=== PATIENT | female | born 1985 | race Caucasian/White ===

== ENCOUNTER → 2019-02-15 16:37 | Outpatient (CLI) | payer BC, SELFPAY ==
[2016-04-22 21:49] VITALS: BMI 34.0
--- NOTE | 2019-02-15 16:44 | RAD_ITS ---
STUDY: X-RAY - LEFT KNEE REASON FOR EXAM: Female, 33 years old. Pain TECHNIQUE: 3 view(s) of the knee. COMPARISON: None. FINDINGS: Normal visualized distal femur. Normal visualized proximal tibia and fibula. Normal proximal tibiofibular articulation. There is mild degenerative arthrosis of the medial femorotibial compartment. Normal lateral femorotibial compartment. Normal patellofemoral articulation. The soft tissue structures are unremarkable. RAD/Knee 3 Views IMPRESSION: Mild degenerative changes. Electronically Signed: Anat Doyle MD at 8:31 EDT Tel , Service support ,
== END ==
PROVIDERS: Family Provider Family Medicine; PCP Family Medicine; Referring Provider Family Medicine; Visit Provider Family Medicine
DX: M25.562 Pain in left knee (principal)
CPT/HCPCS: 73562

== ENCOUNTER → 2019-05-02 10:07 | Outpatient (CLI) | payer BC, SELFPAY ==
--- NOTE | 2019-05-02 10:45 | MRI_ITS ---
STUDY: MRI LEFT KNEE REASON FOR EXAM: Female, 34 years old. Medial knee pain TECHNIQUE: Standardized fat and water weighted pulse sequences were obtained in all 3 orthogonal planes. COMPARISON: Left knee x-ray 02/15/2019 FINDINGS: There is complex tear the medial meniscus body and posterior horn with horizontal and oblique components. There is a small adjacent para meniscal cyst.. There is scattered regions of less than 50% thickness articular cartilage loss of the medial femorotibial compartment. There is trace marrow edema in the posterior medial femoral condyle without evidence of fracture. Normal medial collateral ligamentous complex (MCL). Normal distal semimembranosus, gracilis and semitendinosus tendons. Normal lateral meniscus. Normal hyaline cartilage of the lateral femorotibial compartment. Normal lateral femoral condyle and tibial plateau. Normal proximal tibiofibular articulation. Normal lateral collateral (fibular) ligament. Normal popliteus tendon. Normal biceps femoris tendon. Normal anterior cruciate ligament (ACL). Normal posterior cruciate ligament (PCL). Normal congruent patellofemoral articulation. Normal hyaline cartilage of the patellofemoral compartment. Normal medial and lateral patellar retinaculum. Normal quadriceps tendon. Normal patellar tendon. Normal Hoffa's fat pad. There is no joint effusion. The soft tissues are unremarkable. The otherwise visualized osseous structures are unremarkable. MRI/Lower Ext Joint Only (Routine) IMPRESSION: Complex tear of the medial meniscus body and posterior horn with horizontal and oblique components. Trace bony contusion of the posterior, medial femoral condyle without fracture. Mild chondromalacia of the medial compartment. Electronically Signed: Johnwhitley Allen, at 13:28 EDT Tel , Service support ,
== END ==
PROVIDERS: Family Provider Family Medicine; PCP Family Medicine; Referring Provider Nurse Practitioner Family; Visit Provider Nurse Practitioner Family
DX: M25.569 Pain in unspecified knee (principal)
CPT/HCPCS: 73721

== ENCOUNTER 2020-01-03 16:30 | Outpatient (RCR) | payer BC, SELFPAY ==
--- NOTE | 2019-11-27 16:58 | HP.PTEVAL_ITS ---
Patient's Visit Information STACY SANON is a 34 year old F referred to Physical Therapy by VINCENT LUTHER with a diagnosis of Left Knee Scope. Date of Evaluation: 11/27/19 Physical Therapist: Falguni Cruz DPT - Visit Plan Frequency: 1x/Week Duration: 6 Weeks Plan: 1x a week for 6 weeks for HEP. HEP Given 11/27: quad set, TKE, SLR, Hamstring and Calf Stretching, Bolster extn stretch - Subjective Findings: Left knee scope 11/07/[address] C[address] at [facility]-Wear and tear for about a year and then finally got it checked out. Patient reports its sore after being on it for a long time but once she sat down it was better. 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 Worst: 03/01 Agg: being up on it to long, can't fully straighten it, bending it Eases: sitting down, resting, ice Best: 12/01. Pain along medial knee- describes pain as dull and achy- No radiating pain. No N/T. Does have sciatic nerve problems when she was but it never fully went away hurts with certain movements. Normally she likes to run- 3 [address] a week road and treadmill and beachbody (21 day fix) work outs. PMHx: right shoulder surgery 2006, 2 (8 and 5 year old) Meds: Ibuprofen as needed. Sleep: disturbed. - Objective Posture: FH, RS- can correct but does not maintain. Gait: antalgic- decreased heel/toe pattern due to decreased ROM, decreased stance on left LE. SLS: 30 sec but reports discomfort- increased muscle activation. HR/TR: able reports discomfort with HR. Squat: weight shift to the right- limited ROM. Stairs: asc/desc 8 recip no HR with poor control and descreased push off on the left LE. Observation: incision healing well no s/s of infection. ROM: 10-120 degrees with pain at end ranges. Strength: Ankle: 5/5, Knee: 4+/5, Hip: 4/5 quad set visible but 50% of non surgical, SLR slight lag without quad set first. Flex: HS: severe, Gastroc: severe, Soleus: severe - Goals Goal 1:: Patient will be I with HEP and progression Goal Time Frame: 4-6 Weeks Goal 2:: Patient will ambualte <300 feet with a normalized pattern Goal Time Frame: 4-6 Weeks Goal 3:: Verónican will demo 0-130 degrees of ROM Goal Time Frame: 4-6 Weeks Goal 4:: Patient will asc/desc 8 stairs recip with good control Goal Time Frame: 4-6 Weeks Goal 5:: Patient will report 0/10 pain with ADL's. Goal Time Frame: 4-6 Weeks - Rehabilitation Potential Physical Therapy Diagnosis: Patient presents with hypomobility s/o left knee scope- pt has decreased ROM, strength, flex and muscular endurance leading to abnormal gait and decreased ability to perform ADL's. Rehabilitation Potential: Good - Anticipated Interventions Patient/Client Instruction: Educate patient on: Benefits of Fitness Program Therapeutic Exercise to Include: Strength training, Endurance training, Balance training, Coordination, Agility training, Body mechanics, Postural training, Flexibilty training, Gait and locomotor training, Dynamic Lumbar Stabilization For the Purpose of:: To improve muscle performance and motor function Thank you for the opportunity to evaluate your patient. For Medicare and Medicare HMO plans, please review the plan of care and approve it. It will need to be FAXED BACK to us at [phone] for Medicare purposes. For Medicare only, by signing this I certify the plan of care. Please let me know if there are questions or concerns regarding this plan of care. Physician Signature: Date:
--- NOTE | 2020-01-03 16:49 | HP.PTDCSUM_ITS ---
HP - PT D/C Summary It has been my pleasure to treat STACY SANON under orders from VINCENT LUTHER, for the diagnosis of Left Knee Scope for a total of 2 visit(s). Discharge Date: Please see the following information for a summary of their discharge status. - Subjective Subjective: Patient reports that she is doing great- she is back to all of her normal activities. - Overall Improvement % Improvement: 90 - Objective Objective/Function: Posture: good throughout Gait: no deviation noted SLS: 30 sec HR/TR: able Squat: good technique Stairs: asc/desc 8 recip no HR ROM: 0- 130 degrees with pain at end ranges. Strength: Ankle: 5/5, Knee: 5/5, Hip: 5/5 Flex: HS: mod, Gastroc: mod, Soleus: mod - Goals Goal 1:: Patient will be I with HEP and progression Goal Progress: Goal Met Goal 2:: Patient will ambualte <300 feet with a normalized pattern Goal Progress: Goal Met Goal 3:: Patietn will demo 0-130 degrees of ROM Goal Progress: Goal Met Goal 4:: Patient will asc/desc 8 stairs recip with good control Goal Progress: Goal Met Goal 5:: Patient will report 0/10 pain with ADL's. Goal Progress: Goal Met - Plan Plan: Discharge to HEP - D/C Information If there are questions or concerns regarding this patient's physical therapy, please feel free to call me at [phone]. Thank you for the referral of this patient. Sincerely, Falguni Cruz DPT
== END 2020-01-03 19:00 | disposition home or self-care (01) ==
LOC: PT 16:30
PROVIDERS: Family Provider Family Medicine; PCP Family Medicine
DX: S83.242D Other tear of medial meniscus, current injury, left knee, subsequent encounter (principal)
CPT/HCPCS: 97110; 97161; 97164